=== PATIENT | male | born 1960 ===

== ENCOUNTER 2018-04-27 07:04 | Day surgery (SDC) | payer OTHER ==
[2016-10-30 13:44] VITALS: BMI 25.0
[2018-04-27] MEDS ORDERED: Lactated Ringer's 500 ML IV ONE (07:33)
[2018-04-27] MEDS ORDERED: Propofol 10 mg/ml Inj (20 ML) ONE (08:27)
[2018-04-27] MEDS ORDERED: Midazolam 2 MG/2 ML VIAL ONE (08:27)
[2018-04-27 09:00] VITALS: TEMP 98
[2018-04-27 09:17] VITALS: BP 104/73; PULSE 80; RESP 18; O2SAT 96
== END 2018-04-27 13:38 | disposition home or self-care (01) ==
LOC: H.ENDO 07:04
PROVIDERS: ATTEND Internal Medicine Gastroenterology
DX: Z12.11 Encounter for screening for malignant neoplasm of colon (principal); E78.5 Hyperlipidemia, unspecified; E78.00 Pure hypercholesterolemia, unspecified; Z87.891 Personal history of nicotine dependence; K64.8 Other hemorrhoids
CPT/HCPCS: 45378; J2001; J2250; J2704; J7120